=== PATIENT | male | born 1980 | race African-American/Black ===

== ENCOUNTER 2018-04-30 10:25 | Emergency (ER) | payer MEDICAID ==
[2018-04-30] MEDS: ACETAMINOPHEN 500 MG TAB PO (11:48)
[2018-04-30] MEDS: ONDANSETRON (ODT) 4 MG TAB ODT (11:48)
== END 2018-04-30 13:00 | disposition home or self-care (01) ==
LOC: FTE 10:25
DX: S02.2XXA Fracture of nasal bones, initial encounter for closed fracture (principal); S19.9XXA Unspecified injury of neck, initial encounter; J02.9 Acute pharyngitis, unspecified; F17.210 Nicotine dependence, cigarettes, uncomplicated; S00.81XA Abrasion of other part of head, initial encounter; W18.39XA Other fall on same level, initial encounter; Y92.9 Unspecified place or not applicable
CPT/HCPCS: 70450; 70486; 72125; 87880; 99285-25

== ENCOUNTER 2018-10-26 01:11 | Emergency (ER) | payer SELFPAY, MEDICAID | END 2018-10-26 07:50 | disposition left against medical advice (07) | LOC: FTE 07:50 | DX: Z53.21 Procedure and treatment not carried out due to patient leaving prior to being seen by health care provider (principal) ==

== ENCOUNTER 2018-12-05 06:08 | Emergency (ER) | payer OTHER ==
[2018-12-05] MEDS: KETOROLAC 15 MG INJ IM (09:09)
[2018-12-05] MEDS: oxyCODONE 5 MG TAB PO (09:09)
== END 2018-12-05 11:09 | disposition home or self-care (01) ==
LOC: E/R 06:08
DX: S82.891D Other fracture of right lower leg, subsequent encounter for closed fracture with routine healing (principal); R40.2142 Coma scale, eyes open, spontaneous, at arrival to emergency department; R40.2362 Coma scale, best motor response, obeys commands, at arrival to emergency department; R40.2252 Coma scale, best verbal response, oriented, at arrival to emergency department; W10.9XXD Fall (on) (from) unspecified stairs and steps, subsequent encounter; Y92.9 Unspecified place or not applicable; Z87.891 Personal history of nicotine dependence
CPT/HCPCS: 73610; 73610-RT; 96372; 99284-25

== ENCOUNTER 2018-12-21 02:14 | Emergency (ER) | payer OTHER ==
[2018-12-21] MEDS: HYDROCODONE/APAP (5/325) TAB PO (04:31)
== END 2018-12-21 06:50 | disposition home or self-care (01) ==
LOC: FTE 02:14
DX: M25.571 Pain in right ankle and joints of right foot (principal); M79.671 Pain in right foot; F17.210 Nicotine dependence, cigarettes, uncomplicated
CPT/HCPCS: 73030; 73030-RT; 73610-RT; 73630; 99284-25

== ENCOUNTER 2018-12-23 05:51 | Emergency (ER) | payer OTHER ==
[2018-12-23] MEDS: ACETAMINOPHEN 325 MG TAB PO (06:42)
== END 2018-12-23 07:38 | disposition home or self-care (01) ==
LOC: FTE 05:51
DX: R51 Headache (principal); F17.210 Nicotine dependence, cigarettes, uncomplicated
CPT/HCPCS: 70450; 99284-25

== ENCOUNTER → 2019-01-01 | Emergency (ER) | payer SELFPAY, OTHER | END | disposition left against medical advice (07) | LOC: FTE 05:18 | DX: Z53.21 Procedure and treatment not carried out due to patient leaving prior to being seen by health care provider (principal) ==

== ENCOUNTER 2019-01-06 02:12 | Emergency (ER) | payer SELFPAY, OTHER | END 2019-01-06 03:29 | disposition left against medical advice (07) | LOC: E/R 02:12 | DX: Z53.21 Procedure and treatment not carried out due to patient leaving prior to being seen by health care provider (principal) ==